=== PATIENT | male | born 1950 | race Caucasian/White ===

== ENCOUNTER 2020-12-18 23:27 | Inpatient (IN) ==
[2020-12-19] MEDS ORDERED: 0.9 % Sodium Chloride 1,000 ML IVC ONE ×2 (00:02→12:42)
[2020-12-19 00:20] LABS: Basophils # 0.1 K/mcL (0.0-0.2); Basophils % 0.8 %; Eosinophils # 0.3 K/mcL (0.0-0.6); Hematocrit 48.9 % (37.5-50.1); Hemoglobin 15.8 g/dL (12.9-16.9); Immature Granulocytes % 0.5 % (0-4); Lymphocytes # 2.1 K/mcL (0.6-4.6); Lymphocytes % 19.6 %; Mean Corpuscular HGB Conc 32.3 g/dL (31.6-35.5); Mean Corpuscular Hemoglobin 29.4 pg (28.0-33.3); Mean Corpuscular Volume 91.1 fL (83.0-100.0); Mean Platelet Volume 9.7 fL (9.4-12.4); Monocytes # 1.2 K/mcL (0.0-1.3); Monocytes % 11.7 %; Neutrophils # 6.8 K/mcL (1.6-8.9); Platelet Count 306 K/mcL (140-400); Red Blood Count 5.37 M/mcL (4.19-5.50); Segmented Neutrophils % 64.4 %; White Blood Count 10.5 K/mcL (4.3-11.1)
[2020-12-19] MEDS: DilTIAZem 50 MG/50 ML IV.SOLN IVC SCH ×4 (00:27→12:53)
[2020-12-19 00:42] LABS: Alanine Aminotransferase 35 Units/L (7-52); Albumin/Globulin Ratio 1.2 (1.1-2.2); Alkaline Phosphatase 123 Units/L (34-104); Aspartate Amino Transferase 33 Units/L (13-39); BUN/Creatinine Ratio 13 (6-26); Bilirubin,Total 0.3 mg/dL (0.3-1.0); Blood Urea Nitrogen 15 mg/dL (8-23); Calcium 9.4 mg/dL (8.6-10.3); Carbon Dioxide 27 mEq/L (23-29); Chloride 102 mEq/L (98-107); Globulin 3.3 g/dL (2.4-3.5); Glucose 110 mg/dL (70-105); Osmolality,Calculated 287 (280-300); Potassium 4.2 mEq/L (3.5-5.1); Sodium 138 mEq/L (136-145); Total Protein 7.3 g/dL (6.4-8.9); Troponin I < 0.03 ng/mL (< 0.04); eGFR For African Americans > 60 (> 60); eGFR For Non-African Americans > 60 (> 60)
[2020-12-19 00:49] LABS: VBG HCO3 30 mEq/L (21-27); VBG PCO2 61 mmHg (41-51); VBG PO2 67 mmHg (25-50)
[2020-12-19 00:56] LABS: Thyroid Stimulating Hormone 3.485 mcIU/mL (0.340-5.600)
[2020-12-19] MEDS ORDERED: *HR* Heparin 5,000 UNIT/ML VIAL IVP ONE (00:57)
[2020-12-19] MEDS ORDERED: *HR* Heparin 5,000 UNIT/ML VIAL IVP PRN ×2 (00:57)
[2020-12-19 00:58] LABS: Triiodothyronine (T3) Free 3.26 pg/mL (2.50-3.90)
[2020-12-19] MEDS ORDERED: Ondansetron 4 MG/2 ML VIAL IVP PRN (01:10)
[2020-12-19] MEDS ORDERED: Naloxone 0.4 MG/ML INJ IVP PRN (01:10)
[2020-12-19] MEDS: Heparin 25,000UNIT/250ML 1/2NS 25,000 UNIT/250 ML IV.SOLN IVC SCH ×2 (01:13→21:48)
[2020-12-19] MEDS ORDERED: Furosemide 40 MG/4 ML VIAL IVP ONE (02:08)
[2020-12-19] MEDS ORDERED: Perflutren Lipid Microsphere 1.3 ML in 0.9 % Sodium Chloride 8.7 ML IVP PRN (02:09)
[2020-12-19] MEDS ORDERED: *HR* Metoprolol 5 MG/5 ML VIAL IVP ONE (03:27)
[2020-12-19 04:08] LABS: INR 1.1; Prothrombin Time 12.9 Seconds (9.4-12.1)
[2020-12-19 04:15] LABS: Heparin anti-factor XA UFH 1.48 IU/mL (0.30-0.70)
[2020-12-19 05:11] LABS: BUN/Creatinine Ratio 16 (6-26); Blood Urea Nitrogen 15 mg/dL (8-23); Calcium 8.7 mg/dL (8.6-10.3); Carbon Dioxide 27 mEq/L (23-29); Chloride 105 mEq/L (98-107); Chol/HDL Ratio 2.2 (0-4.9); Cholesterol 147 mg/dL (< 200); Glucose 122 mg/dL (70-105); HDL Cholesterol 68 mg/dL (40-59); LDL Cholesterol,Calculated 69 mg/dL (< 100); Magnesium 2.1 mg/dL (1.6-2.6); Osmolality,Calculated 288 (280-300); Potassium 4.3 mEq/L (3.5-5.1); Sodium 138 mEq/L (136-145); Triglycerides 48 mg/dL (< 150); Troponin I < 0.03 ng/mL (< 0.04); eGFR For African Americans > 60 (> 60); eGFR For Non-African Americans > 60 (> 60)
[2020-12-19] MEDS: Budesonide/Formoterol 160/4.5 1 PUFF INH IH SCH ×2 (07:34→20:09)
[2020-12-19] MEDS: Venlafaxine XR (24 HR) 150 MG CAP.ER.24H PO SCH (08:47)
[2020-12-19] MEDS: clonazePAM 1 MG TABLET PO SCH ×2 (08:47→20:01)
[2020-12-19] MEDS: Loratadine 10 MG TABLET PO SCH (08:48)
[2020-12-19] MEDS: Aspirin Enteric Coated 81 MG Tablet PO SCH (08:48)
[2020-12-19] MEDS: BuPROPion XL (24 HR) 150 MG TABLET PO SCH (08:48)
[2020-12-19] MEDS ORDERED: Metoprolol XL (24 HR) Succ 50 MG TAB.ER.24H PO SCH (09:00)
[2020-12-19] MEDS ORDERED: DilTIAZem CD (24hr) 120 MG CAP.ER.24H PO SCH (09:00)
[2020-12-19] MEDS ORDERED: Amiodarone Premix 150 MG/100 ML BAG IVPB ONE (09:15)
[2020-12-19] MEDS ORDERED: Amiodarone Premix 360 MG/200 ML BAG IVC ONE (09:15)
[2020-12-19] MEDS ORDERED: 0.9 % Sodium Chloride 1,000 ML IV ONE (12:43)
[2020-12-19] MEDS ORDERED: 0.9 % Sodium Chloride 1,000 ML ONE (12:48)
[2020-12-19] MEDS ORDERED: Amiodarone Premix 360 MG/200 ML BAG IVC SCH (15:18)
[2020-12-19] MEDS ORDERED: 0.9 % Sodium Chloride 500 ML IVC ONE (16:37)
[2020-12-19] MEDS: QUEtiapine Fumarate 100 MG TABLET PO SCH (20:02)
[2020-12-19] MEDS: Metoprolol XL (24 HR) Succ 50 MG TAB.ER.24H PO SCH (20:06)
[2020-12-20 03:54] LABS: Basophils % 0.4 %; Eosinophils # 0.3 K/mcL (0.0-0.6); Eosinophils % 3.1 %; Hematocrit 40.6 % (37.5-50.1); Hemoglobin 12.8 g/dL (12.9-16.9); Immature Granulocytes % 0.4 % (0-4); Lymphocytes # 1.8 K/mcL (0.6-4.6); Lymphocytes % 21.5 %; Mean Corpuscular HGB Conc 31.5 g/dL (31.6-35.5); Mean Corpuscular Hemoglobin 29.9 pg (28.0-33.3); Mean Corpuscular Volume 94.9 fL (83.0-100.0); Mean Platelet Volume 9.5 fL (9.4-12.4); Monocytes # 0.9 K/mcL (0.0-1.3); Monocytes % 10.6 %; Neutrophils # 5.3 K/mcL (1.6-8.9); Platelet Count 230 K/mcL (140-400); Red Blood Count 4.28 M/mcL (4.19-5.50); Red Cell Distribution Width 13.1 % (11.5-14.5); White Blood Count 8.3 K/mcL (4.3-11.1)
[2020-12-20 04:46] LABS: BUN/Creatinine Ratio 22 (6-26); Blood Urea Nitrogen 21 mg/dL (8-23); Carbon Dioxide 28 mEq/L (23-29); Chloride 106 mEq/L (98-107); Glucose 109 mg/dL (70-105); Magnesium 1.9 mg/dL (1.6-2.6); Osmolality,Calculated 292 (280-300); Phosphorous 3.1 mg/dL (2.7-4.5); Sodium 139 mEq/L (136-145); eGFR For African Americans > 60 (> 60); eGFR For Non-African Americans > 60 (> 60)
[2020-12-20] MEDS ORDERED: Regadenoson 0.4 MG/5 ML SYRINGE IVP ONE (06:26)
[2020-12-20] MEDS: Venlafaxine XR (24 HR) 150 MG CAP.ER.24H PO SCH (08:06)
[2020-12-20] MEDS: BuPROPion XL (24 HR) 150 MG TABLET PO SCH (08:06)
[2020-12-20] MEDS: Loratadine 10 MG TABLET PO SCH (08:06)
[2020-12-20] MEDS: clonazePAM 1 MG TABLET PO SCH ×2 (08:07→19:45)
[2020-12-20] MEDS: Aspirin Enteric Coated 81 MG Tablet PO SCH (08:07)
[2020-12-20] MEDS: Metoprolol XL (24 HR) Succ 50 MG TAB.ER.24H PO SCH ×2 (08:07→19:46)
[2020-12-20] MEDS ORDERED: DilTIAZem CD (24hr) 120 MG CAP.ER.24H PO SCH (09:00)
[2020-12-20] MEDS: DilTIAZem 50 MG/50 ML IV.SOLN IVC SCH (09:21)
[2020-12-20] MEDS ORDERED: 0.9 % Sodium Chloride 500 ML IVC SCH (10:30)
[2020-12-20] MEDS ORDERED: 0.9 % Sodium Chloride 500 ML IVC ONE ×2 (10:31→12:41)
[2020-12-20] MEDS: Budesonide/Formoterol 160/4.5 1 PUFF INH IH SCH ×2 (10:59→22:15)
[2020-12-20] MEDS ORDERED: Amiodarone Premix 150 MG/100 ML BAG IVPB ONE (12:34)
[2020-12-20] MEDS ORDERED: Amiodarone Premix 360 MG/200 ML BAG IVC ONE (12:34)
[2020-12-20] MEDS: Levalbuterol Neb 1.25 MG/3 ML IH SCH ×2 (15:29→22:15)
[2020-12-20] MEDS: predniSONE 20 MG TABLET PO SCH (17:29)
[2020-12-20] MEDS: QUEtiapine Fumarate 100 MG TABLET PO SCH (19:45)
[2020-12-20] MEDS: Amiodarone Premix 360 MG/200 ML BAG IVC SCH (19:45)
[2020-12-21 01:20] LABS: Basophils % 0.1 %; Eosinophils % 0.2 %; Hemoglobin 13.1 g/dL (12.9-16.9); Immature Granulocytes % 0.3 % (0-4); Lymphocytes # 0.7 K/mcL (0.6-4.6); Mean Corpuscular HGB Conc 31.2 g/dL (31.6-35.5); Mean Corpuscular Hemoglobin 29.8 pg (28.0-33.3); Mean Corpuscular Volume 95.5 fL (83.0-100.0); Mean Platelet Volume 9.8 fL (9.4-12.4); Monocytes # 0.2 K/mcL (0.0-1.3); Monocytes % 1.8 %; Neutrophils # 7.9 K/mcL (1.6-8.9); Platelet Count 223 K/mcL (140-400); Red Cell Distribution Width 12.8 % (11.5-14.5); Segmented Neutrophils % 89.6 %; White Blood Count 8.8 K/mcL (4.3-11.1)
[2020-12-21 02:13] LABS: BUN/Creatinine Ratio 20 (6-26); Blood Urea Nitrogen 17 mg/dL (8-23); Calcium 8.6 mg/dL (8.6-10.3); Carbon Dioxide 24 mEq/L (23-29); Chloride 104 mEq/L (98-107); Glucose 126 mg/dL (70-105); Magnesium 2.4 mg/dL (1.6-2.6); Osmolality,Calculated 285 (280-300); Phosphorous 3.5 mg/dL (2.7-4.5); Potassium 4.6 mEq/L (3.5-5.1); Sodium 136 mEq/L (136-145); eGFR For African Americans > 60 (> 60); eGFR For Non-African Americans > 60 (> 60)
[2020-12-21] MEDS: Levalbuterol Neb 1.25 MG/3 ML IH SCH ×4 (03:09→21:39)
[2020-12-21] MEDS: Amiodarone Premix 360 MG/200 ML BAG IVC SCH ×2 (07:33→20:55)
[2020-12-21] MEDS: Heparin 25,000UNIT/250ML 1/2NS 25,000 UNIT/250 ML IV.SOLN IVC SCH ×2 (07:50→21:25)
[2020-12-21] MEDS: Venlafaxine XR (24 HR) 150 MG CAP.ER.24H PO SCH (08:47)
[2020-12-21] MEDS: predniSONE 20 MG TABLET PO SCH (08:47)
[2020-12-21] MEDS: clonazePAM 1 MG TABLET PO SCH ×2 (08:47→20:57)
[2020-12-21] MEDS: Loratadine 10 MG TABLET PO SCH (08:47)
[2020-12-21] MEDS: Aspirin Enteric Coated 81 MG Tablet PO SCH (08:47)
[2020-12-21] MEDS: BuPROPion XL (24 HR) 150 MG TABLET PO SCH (08:47)
[2020-12-21] MEDS: Metoprolol XL (24 HR) Succ 50 MG TAB.ER.24H PO SCH ×2 (10:31→20:57)
[2020-12-21] MEDS ORDERED: *HR* Amiodarone 200 MG TABLET PO ONE (10:32)
[2020-12-21] MEDS: Budesonide/Formoterol 160/4.5 1 PUFF INH IH SCH ×2 (10:40→21:41)
[2020-12-21] MEDS: *HR* Amiodarone 200 MG TABLET PO SCH ×2 (11:40→20:57)
[2020-12-21] MEDS: QUEtiapine Fumarate 100 MG TABLET PO SCH (20:56)
[2020-12-21] MEDS: Apixaban 5 MG TABLET PO SCH (20:57)
[2020-12-22 01:33] LABS: Basophils % 0.1 %; Eosinophils % 0.4 %; Hematocrit 37.7 % (37.5-50.1); Hemoglobin 11.8 g/dL (12.9-16.9); Immature Granulocytes % 0.4 % (0-4); Lymphocytes # 1.4 K/mcL (0.6-4.6); Lymphocytes % 15.2 %; Mean Corpuscular HGB Conc 31.3 g/dL (31.6-35.5); Mean Corpuscular Hemoglobin 29.1 pg (28.0-33.3); Mean Corpuscular Volume 93.1 fL (83.0-100.0); Mean Platelet Volume 9.7 fL (9.4-12.4); Monocytes % 10.5 %; Neutrophils # 6.7 K/mcL (1.6-8.9); Platelet Count 235 K/mcL (140-400); Red Blood Count 4.05 M/mcL (4.19-5.50); Red Cell Distribution Width 12.7 % (11.5-14.5); Segmented Neutrophils % 73.4 %; White Blood Count 9.1 K/mcL (4.3-11.1)
[2020-12-22 02:13] LABS: BUN/Creatinine Ratio 20 (6-26); Blood Urea Nitrogen 18 mg/dL (8-23); Carbon Dioxide 27 mEq/L (23-29); Chloride 102 mEq/L (98-107); Glucose 130 mg/dL (70-105); Magnesium 2.2 mg/dL (1.6-2.6); Osmolality,Calculated 286 (280-300); Phosphorous 2.6 mg/dL (2.7-4.5); Potassium 3.9 mEq/L (3.5-5.1); Sodium 136 mEq/L (136-145); eGFR For African Americans > 60 (> 60); eGFR For Non-African Americans > 60 (> 60)
[2020-12-22] MEDS: Levalbuterol Neb 1.25 MG/3 ML IH SCH ×2 (03:46→10:27)
[2020-12-22] MEDS ORDERED: Regadenoson 0.4 MG/5 ML SYRINGE IVP ONE ×2 (07:14→07:28)
[2020-12-22] MEDS: Loratadine 10 MG TABLET PO SCH (08:30)
[2020-12-22] MEDS: predniSONE 20 MG TABLET PO SCH (08:30)
[2020-12-22] MEDS: clonazePAM 1 MG TABLET PO SCH (08:30)
[2020-12-22] MEDS: Venlafaxine XR (24 HR) 150 MG CAP.ER.24H PO SCH (08:30)
[2020-12-22] MEDS: Aspirin Enteric Coated 81 MG Tablet PO SCH (08:31)
[2020-12-22] MEDS: BuPROPion XL (24 HR) 150 MG TABLET PO SCH (08:31)
[2020-12-22] MEDS: *HR* Amiodarone 200 MG TABLET PO SCH (08:31)
[2020-12-22] MEDS: Apixaban 5 MG TABLET PO SCH (08:31)
[2020-12-22] MEDS: Metoprolol XL (24 HR) Succ 50 MG TAB.ER.24H PO SCH (09:34)
[2020-12-22] MEDS: Budesonide/Formoterol 160/4.5 1 PUFF INH IH SCH (10:27)
[2020-12-22 11:10] VITALS: BP 143/74
[2020-12-22] MEDS ORDERED: Metoprolol XL (24 HR) Succ 25 MG TAB.ER.24H PO SCH (21:00)
== END 2020-12-22 15:25 | disposition home or self-care (01) | DRG 308 ==
LOC: 2ANU 23:27 → EMEROOARM 23:27 → 2ANU 12-19 02:40 → 2NNU 12-19 08:22 → SUATTDRO 12-20 17:08
PROVIDERS: ADMIT Student in an Organized Health Care Education/Training Program; ATTEND Internal Medicine